=== PATIENT | female | born 2000 | race African-American/Black ===

== ENCOUNTER 2024-08-02 21:59 | Inpatient (IN) | payer MEDICAID, OTHER ==
[~2024-08-02] VITALS: Ht 157.5 cm; Wt 89.6 kg
[~2024-08-02 21:59] MED LIST: CEPH-37 PO; IBUP-1456 PO
[2024-08-02 23:10] LABS: Urine Bacteria None Seen /hpf (None Seen)
--- NOTE | 2024-08-02 23:36 | ED.PDOC ---
History of Present Illness HPI Comments 23 y/o F presents with c/o non-radiating, suprapubic abdominal pain and abnormal vaginal bleeding, today. Patient endorses on persisting symptoms, that she thought was her period, initially, for the past 3x weeks. She comments on being seen and sent from an urgent care facility for symptoms and learning via urine test on being , currently. Patient reports bleeding being mildly heavy and going through 2-3x pads/day in addition to describing pain as cramping in quality. She reports no further relevant information, such as any recent injuries, sexual activities, or significant EARLY CHILDHOOD SERVICES COORDINATOR medical history. Patient denies any nausea, vomiting, urinary symptoms, lightheadedness, weakness, or other associated symptoms or modifiers, currently. Chief Complaint: Vaginal Bleed Time Seen by MD: 23:00 Primary Care Provider: DEBI Lagunas Notes: Nurses Notes, Medications, Allergies Allergies: Coded Allergies: NO KNOWN ALLERGIES (Unverified , 02/08/13) Home Meds Active Scripts Ibuprofen (Ibuprofen) 800 Mg Tab, 800 MG PO Q6HP PRN, #20 MG Prov:MARGARITO MUNIZ PAC 05/17/13 Cephalexin (Keflex) 500 Mg Cap, 500 MG PO BID, #14 MG Prov:MARGARITO MUNIZ PAC 05/17/13 Information Source: Patient Mode of Arrival: Ambulatory Severity: Moderate Timing: Hours, Weeks Duration: Since onset Prehospital treatment: None Past Medical History PAST MEDICAL HISTORY: Asthma Past Medical History (Other): obesity Surgical History: Denies all surgeries 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 SALESPERSON RETAIL Hx Family History Family History: Unknown Social History Smoker: Non-Smoker Alcohol: Denies ETOH Use Drugs: Denies Drug Use Lives In: Home Gastrointestinal: reports: abdominal pain Genitourinary: reports: abnormal vagina bleeding All Other Systems: Reviewed and Negative (negative unless otherwise stated above or in HPI) Physical Exam General Appearance: No Apparent Distress, Obese HEENT: Normal ENT Inspection, Pharynx Normal, TMs Normal Neck: Full Range of Motion, Non-Tender, Normal, Normal Inspection Respiratory: Chest Non-Tender, Lungs Clear, No Accessory Muscle Use, No Respiratory Distress, Normal Breath Sounds Cardiovascular: No Edema, No JVD, No Murmur, No Gallop, Normal Peripheral Pulses, Regular Rate/Rhythm Breast Exam: Deferred Gastrointestinal: No Organomegaly, Non Tender, No Pulsatile Mass, Normal Bowel Sounds, Soft Genitalia: Deferred Pelvic: Deferred Rectal: Deferred Extremities: No calf tenderness, Normal capillary refill, Normal inspection, Normal range of motion, Non-tender, No pedal edema Musculoskeletal : Apperance: Normal Neurologic: Alert, shafting cleaner II-XII nml as Tested, No Motor Deficits, Normal Affect, Normal Mood, No Sensory Deficits Cerebellar Function: Normal Reflexes: Normal Skin: Dry, Normal Color, Warm Lymphatic: No Adenopathy Was a procedure done? Was a procedure done?: No Differential Dx Considerations may include: menorrhagia, dysmenorrhea, at-risk , UTI X-Ray, Labs, Meds, VS Vital Signs Date Time Temp Pulse Resp B/P (MAP) Pulse Ox O2 Delivery O2 Flow Rate FiO2 08/03/24 01:29 98.9 79 19 116/84 (95) 99 98.9 08/02/24 22:16 97.8 71 18 128/62 (84) 98 Lab Test 08/02/24 23:38 08/02/24 22:14 Range/Units White Blood Count 14.1 H 4.4-10.8 10^3/uL Red Blood Count 4.43 4.0-5.20 10^6/uL Hemoglobin 12.5 12.2-16.2 g/dL Hematocrit 37.8 36.0-46.0 % Mean Corpuscular Volume 85.3 80.0-100.0 fL Mean Corpuscular Hemoglobin 28.2 28.0-32.0 pg Mean Corpuscular Hemoglobin Concent 33.1 32.0-36.0 g/dL Red Cell Distribution Width 14.5 H 11.8-14.3 % Platelet Count 353 140-450 10^3/uL Mean Platelet Volume 7.5 6.9-10.8 fL Neutrophils (%) (Auto) 63.7 37.0-80.0 % Lymphocytes (%) (Auto) 28.0 10.0-50.0 % Monocytes (%) (Auto) 6.7 0.0-12.0 % Eosinophils (%) (Auto) 0.7 0.0-7.0 % Basophils (%) (Auto) 0.9 0.0-2.0 % Neutrophils # (Auto) 9.0 H 1.6-8.6 10 ^3/uL Lymphocytes # (Auto) 4.0 0.4-5.4 10 ^3/uL Monocytes # (Auto) 0.9 0-1.3 10 ^3/uL Eosinophils # (Auto) 0.1 0-0.8 10 ^3/uL Basophils # (Auto) 0.1 0-0.2 10 ^3/uL Nucleated Red Blood Cells 0.0 % Sodium Level 138 136-145 mmol/L Potassium Level 3.9 3.5-5.1 mmol/L Chloride Level 103 98-107 mmol/L Carbon Dioxide Level 26 20-31 mmol/L Anion Gap 9 5-15 Blood Urea Nitrogen 9 9-23 mg/dL Creatinine 0.63 0.550-1.02 mg/dL Glomerular Filtration Rate Calc 126 >90 mL/min BUN/Creatinine Ratio 14.3 10.0-20.0 Serum Glucose 97 74-106 mg/dL Calcium Level 10.1 8.7-10.4 mg/dL Total Bilirubin 0.4 0.2-1.0 mg/dL Aspartate Amino Transferase (AST) 13 13-40 U/L Alanine Aminotransferase (ALT) 20 7-40 U/L Alkaline Phosphatase 66 46-116 U/L Total Protein 7.5 5.7-8.2 g/dL Albumin 4.8 3.2-4.8 g/dL Beta HCG, Quantitative 78556.4 H 1.5-4.2 mIU/mL Urine Color Light-yellow Yellow Urine Clarity Clear Clear Urine pH 6.0 5.0-9.0 Urine Specific [place] 1.018 1.001-1.035 Urine Protein Negative Negative Urine Ketones Negative Negative Urine Blood 3+ H Negative /uL Urine Nitrite Negative Negative Urine Bilirubin Negative Negative Urine Urobilinogen Normal Negative mg/dL Urine Leukocyte Esterase Negative Negative /uL Urine RBC 185 0 - 4 /hpf Urine Microscopic WBC 2 0-5 /HPF Urine Squamous Epithelial Cells Few <5 /hpf Urine Bacteria None seen None Seen /hpf Urine Glucose Normal Normal mg/dL Time of 1ST Reevaluation: 23:30 Reevaluation 1ST: Unchanged Time of 2ND Reevaluation: 01:39 Reevaluation 2ND: Unchanged Patient Education/Counseling: Diagnosis, Treatment Family Education/Counseling: No Family Present Departure 1 Departure Time of Disposition: 01:39 Impression: Primary Impression: Ectopic Disposition: 09 ADMITTED INPATIENT Admit to: Other Condition: Guarded Discharged With: Self Critical Care Note Critical Care Time?: Yes (35 min-critical care time only) Critical care comment: Total critical care time: Approximately 36 minutes Due to a high probability of clinically significant, life threatening deterioration, the patient required my highest level of preparedness to intervene emergently and I personally spent this critical care time directly and personally managing the patient. This critical care time included obtaining a history; examining the patient; pulse oximetry; ordering and review of studies; arranging urgent treatment with development of a management plan; evaluation of patient's response to treatment; frequent reassessment; and, discussions with other providers. This critical care time was performed to assess and manage the high probability of imminent, life-threatening deterioration that could result in multi-organ failure. It was exclusive of separately billable procedures and treating other patients. Stability Stability form required: No Heart Score Heart Score: Heart Score Response (Comments) Value History N/A 0 EKG N/A 0 Age N/A 0 Risk Factors N/A 0 Troponin N/A 0 Total 0 I personally scribed for FRANNY LUEVANO MD ([email or web address]) on 08/02/24 at 23:36. Electronically submitted by Hemant Morrell ([email or web address]). FRANNY LUEVANO MD Aug 02, 2024 23:36
[2024-08-02 23:46] LABS: Urine Blood 3+ /uL (Negative); Urine Clarity Clear (Clear); Urine Color Light-Yellow (Yellow); Urine Protein, UAD Negative (Negative); Urine Specific Gravity 1.018 (1.001-1.035); Urine Squamous Epithelial Cell FEW /hpf (<5); Urine Urobilinogen Normal (Negative); Urine WBC 2 /HPF (0-5)
[2024-08-02 23:49] LABS: Basophils # (auto) 0.1 10 ^3/uL (0-0.2); Basophils % (auto) 0.9 % (0.0-2.0); Eosinophils # (auto) 0.1 10 ^3/uL (0-0.8); Eosinophils % (auto) 0.7 % (0.0-7.0); Hematocrit 37.8 % (36.0-46.0); Hemoglobin 12.5 g/dL (12.2-16.2); Mean Corpuscular Hemoglobin 28.2 pg (28.0-32.0); Mean Corpuscular Hgb Conc. 33.1 g/dL (32.0-36.0); Mean Corpuscular Volume 85.3 fL (80.0-100.0); Monocytes # (auto) 0.9 10 ^3/uL (0-1.3); Monocytes % (auto) 6.7 % (0.0-12.0); Neutrophils % (auto) 63.7 % (37.0-80.0); Platelet Count (auto) 353 10^3/uL (140-450); Red Blood Cells 4.43 10^6/uL (4.0-5.20); Red Cell Distribution Width 14.5 % (11.8-14.3); White Blood Cell 14.1 10^3/uL (4.4-10.8)
[2024-08-03] VITALS (8 sets, daily range): BP systolic 107–140; BP diastolic 49–97; PULSE 64–87; RESP 16–18; TEMP 97.7–98.4; O2SAT 94–100
[2024-08-03 00:14] LABS: Alanine Aminotransferase 20 U/L (7-40); Alkaline Phosphatase 66 U/L (46-116); Anion Gap 9 (5-15); Aspartate Aminotransferase 13 U/L (13-40); BUN/Creatinine Ratio 14.3 (10.0-20.0); Calcium 10.1 mg/dL (8.7-10.4); Carbon Dioxide 26 mmol/L (20-31); Chloride 103 mmol/L (98-107); Glucose 97 mg/dL (74-106); Potassium 3.9 mmol/L (3.5-5.1); Sodium 138 mmol/L (136-145)
[2024-08-03 00:15] LABS: Bilirubin, Total 0.4 mg/dL (0.2-1.0); Total Protein 7.5 g/dL (5.7-8.2)
[2024-08-03 00:16] LABS: Albumin 4.8 g/dL (3.2-4.8); Blood Urea Nitrogen 9 mg/dL (9-23)
--- NOTE | 2024-08-03 01:32 | DVH ---
OB ULTRASOUND <14 WEEKS: HISTORY: vag bleeding, early TECHNIQUE: Multiple real-time grayscale sonographic images of the pelvis with duplex Doppler color f low, spectral and M-mode analysis. TRANSDUCERS: COMPARISON: None FINDINGS: The uterus measures approximately 10.2 x 5.2 x 5.1 cm. No intrauterine is identified. Endom etrium measures 12-13 mm in thickness. Right ovary measures approximately 3.5 x 1.8 x 2.8 cm with normal Doppler color flow. Left ovary measures approximately 3.2 x 2.4 x 3.1 cm with normal Doppler color flow. There is evidence of a complex mixed echogenicity lesion with vascularity in the left adenexal region measuring up to 3.3 cm which may represent ectopic . Small amount of nonspecific free fluid noted in the cul-de-sac. IMPRESSION: No evidence of intrauterine . Complex mixed echogenicity lesion in left adnexal region which may represent ectopic .
[2024-08-03 02:11] LABS: INR 0.97 (0.9-1.15); Partial Thromboplastin Time 29.3 SEC (24.5-34.5); Prothrombin Time 10.3 sec (9.3-11.8)
[2024-08-03] MEDS ORDERED: IBUP-1456 PO (07:10)
[2024-08-03] MEDS ORDERED: DOCU-94 PO (07:10)
[2024-08-03] MEDS ORDERED: HYDR-4072 PO (07:10)
[2024-08-03] MEDS ORDERED: ZOFR4T PO (07:10)
--- NOTE | 2024-08-03 07:12 | DVHHP ---
ADMIT DATE: 08/02/2024 CHIEF COMPLAINT: Abdominal pain, vaginal bleeding. HISTORY OF PRESENT ILLNESS: The patient is a 23-year-old 2, para 1 with last menstrual period beginning of June, admitted for ectopic . The patient's beta hCG is 14,000, no intrauterine noted. Left adnexal complex mass noted. The patient has been having spotting and pain for the last 3 weeks, which became worse. Her ultrasound reveals a 10 cm uterus with 3.5 cm complex mass on the left side. PAST MEDICAL HISTORY: None. PAST SURGICAL HISTORY: None. SOCIAL HISTORY: The patient admits to smoking. FAMILY HISTORY: None. ALLERGIES: No known drug allergies. REVIEW OF SYSTEMS: Consistent with HPI. PHYSICAL EXAMINATION: VITAL SIGNS: Stable, afebrile. HEENT: Within normal limits. CARDIOVASCULAR: Regular rate and rhythm. LUNGS: Clear to auscultation. BREASTS: Symmetrical. No masses. ABDOMEN: Soft, no rigidity, no rebound. PELVIC: External genitalia within normal limits. Vagina normal. Cervix grossly normal. Uterus 10-week size. Adnexal tenderness on the left side. EXTREMITIES: No clubbing, cyanosis or edema. IMPRESSION: Suspect left adnexal ectopic . PLAN: Laparoscopy, possible exploratory laparotomy, possible removal of affected tube or ovary or both on the affected side, possible blood transfusion, possible exploratory laparotomy. Informed consent obtained. Risks, complication of surgery including infection, bleeding, hematoma formation, injury to bowel, bladder, surrounding organs, possibility of DVT, pulmonary embolism, risk of anesthesia discussed with the patient. Options reviewed. All questions answered. The patient fully understands. She wishes to proceed with planned procedure. DO SONAM Shah TID: [id number] RECEIPT: [id number]
[2024-08-03] MEDS ORDERED: ACETAMINOPHEN 500 MG TAB or CAP PO PRN (07:15)
[2024-08-03] MEDS ORDERED: RHO (D) IMMUNE GLOBULIN 300 MCG INJ IM PRN (07:15)
[2024-08-03] MEDS ORDERED: MEPERIDINE HCL (25 MG/ML) 1ML VIAL ONE (07:20)
[2024-08-03] MEDS ORDERED: fentaNYL CITRATE 100 MCG/2 ML VL ONE (07:20)
[2024-08-03] MEDS ORDERED: MIDAZOLAM HCL 2MG/2ML 2ml VIAL (1mg/ml) ONE (07:20)
[2024-08-03] MEDS: SUCCINYLCHOLINE CHLORIDE 20 MG/ML 10ML VIAL IV ONE (07:26)
[2024-08-03] MEDS ORDERED: PROPOFOL 10 MG/ML 20 ML IV ONE (07:42)
[2024-08-03] MEDS ORDERED: DexAMETHasone SOD PHOS 10MG/1ML VIAL INJ ONE (07:42)
[2024-08-03] MEDS ORDERED: ONDANSETRON HCL 4 MG/2 ML VIAL ONE (07:42)
[2024-08-03] MEDS ORDERED: ROCURONIUM 10MG/ML 10ML VIAL IV ONE (07:57)
[2024-08-03] MEDS: ceFAZolin 2 GM/D5W100ml 100 ML IV ONE (08:20)
[2024-08-03] MEDS: LIDOCAINE W/ EPINEPHRINE 1% 20ML VIAL ONE (08:25)
[2024-08-03] MEDS: BUPIVACAINE HCL 0.25% P/F 10 ML VIAL ONE ×2 (08:26)
[2024-08-03] MEDS ORDERED: MORPHINE SULFATE INJ 2 MG/ml SYRG IV PRN (08:30)
[2024-08-03] MEDS ORDERED: NITROGLYCERIN 0.4 MG SL TAB SL PRN (08:30)
[2024-08-03] MEDS ORDERED: SUGAMMADEX 200mg/2ml Vial (100MG/ML) IV ONE (08:31)
[2024-08-03] MEDS: HYDROmorphone HCL 2 MG/ML VL/or syr ONE (09:01)
[2024-08-03] MEDS: HYDROmorphone HCL 2 MG/ML VL/or syr IV PRN (09:02)
[2024-08-03] MEDS: KETOROLAC TROMETH 30 MG/ML 1ML VIAL IV ONE (09:15)
[2024-08-03] MEDS ORDERED: ePHEDrine SULFATE 50 MG/ML AMP IV PRN (09:15)
[2024-08-03] MEDS: ONDANSETRON HCL 4 MG/2 ML VIAL IV ONE (09:15)
[2024-08-03] MEDS ORDERED: MIDAZOLAM HCL 2MG/2ML 2ml VIAL (1mg/ml) IV PRN (09:15)
[2024-08-03] MEDS ORDERED: hydrALAZINE HCL 20 MG/ML VL IV PRN (09:15)
[2024-08-03] MEDS ORDERED: MORPHINE SULFATE 4 MG/ML SYR/VIAL IV PRN (09:15)
[2024-08-03] MEDS: ACETAMINOPHEN IV 1000 MG/100ML (10MG/ML) IV ONE (09:30)
[2024-08-03 11:48] LABS: Basophils # (auto) 0 10 ^3/uL (0-0.2); Basophils % (auto) 0.1 % (0.0-2.0); Eosinophils # (auto) 0 10 ^3/uL (0-0.8); Hemoglobin 12.9 g/dL (12.2-16.2); Lymphocytes # (auto) 1.2 10 ^3/uL (0.4-5.4); Lymphocytes % (auto) 8.4 % (10.0-50.0); Mean Corpuscular Hemoglobin 27.8 pg (28.0-32.0); Mean Corpuscular Volume 84.3 fL (80.0-100.0); Monocytes # (auto) 0.2 10 ^3/uL (0-1.3); Monocytes % (auto) 1.1 % (0.0-12.0); Neutrophils # (auto) 13.3 10 ^3/uL (1.6-8.6); Neutrophils % (auto) 90.4 % (37.0-80.0); Nucleated Red Blood Cells % 0.1 %; Platelet Count (auto) 373 10^3/uL (140-450); Red Blood Cells 4.63 10^6/uL (4.0-5.20); Red Cell Distribution Width 14.5 % (11.8-14.3); White Blood Cell 14.7 10^3/uL (4.4-10.8)
--- NOTE | 2024-08-03 12:51 | DVHOP2 ---
Operative Report DATE OF OPERATION: 08/03/24 PREOPERATIVE DIAGNOSES: lefttubal ectopic . POSTOPERATIVE DIAGNOSES: left tubal ectopic pregnancyleaking.pid SURGEON: Cornelia Mcclelland D.O./fay ANESTHESIOLOGIST: song TYPE OF ANESTHESIA : General CONSENT: The patient was informed of the risks and benefits of the procedure. The patient was informed of the risks and benefits of the procedure. These include but are not limited to , complications of anesthesia, postoperative infection, incomplete relief of symptoms, recurrence of symptoms, damage to blood vessels, nerves and tendons, deep venous thrombosis, pulmonary embolism and possible need for repeat surgery in the future. FINDINGS:left tubal . Uterus is 8-week sized. right tube and ovary are normal appearing but with adhesions findings c/w pid filmy adhesions . left ovary is normal appearing. PROCEDURES: Laparoscopic left Salpingectomy. PROCEDURE IN DETAIL: The patient was taken to the operating room where she was placed under general anesthesia. She was then prepped and draped in the usual sterile manner in dorsal lithotomy position. Bladder was emptied using Morales catheter. Examination under anesthesia revealed the above findings. A weighted speculum was placed in the vagina. Anterior lip of the cervix was grasped using single-tooth tenaculum. Uterus was sounded to 8 cm. HUMI catheter was placed. Attention was then turned to the abdomen where Veress needle was introduced. Abdomen was distended with 3L of CO2 gas. Using Visiport, under direct visualization, abdomen was entered through the umbilical fold. A 5-mm trocar was placed in the suprapubic region. A 12-mm trocar was placed on the left lateral aspect of the abdomen 4 cm away from the midline. Survey of pelvis and abdomen revealed left tubal .there was evidence of pid . righttube and ovary were grossly normal appearing. A WAYNE stapler was then introduced to excise the ectopic . This was done successfully. Hemoclips were applied. Pelvis was copiously irrigated with normal saline. Using endobag, the specimen was brought out through the 12-mm port. No bleeding was noted. Incisional ports were closed using 4-0 Vicryl as well as 0 Vicryl for the bigger port enclosing the fascia. The patient tolerated the procedure well. The 12-mm trocar site was closed using staplers. HUMI catheter was removed from the vagina and cervix. The patient was taken to the recovery room in a stable condition. ESTIMATED BLOOD LOSS: Estimated blood loss was noted to be 20 mL. Visit Coding OBGYN Date of Service: Aug 03, 2024 Billing Provider: CORNELIA MCCLELLAND DO DATABASE PROGRAMMER Common Visit Codes: 58180-FOM/OBS SAME DATE (HIGH) DATABASE PROGRAMMER Consultation Codes: 88507-LJAGTSUOD CONSULT <80MIN DATABASE PROGRAMMER Procedure Codes: 80271-INP.SURG:W/REM ADNEXAL STRUCT, 30073-BDQS TX OF ECTOPIC PREG CORNELIA MCCLELLAND DO Aug 03, 2024 12:51
[2024-08-03] MEDS: MORPHINE SULFATE 4 MG/ML SYR/VIAL IV PRN (12:52)
--- NOTE | 2024-08-03 12:53 | POSTOP ---
Post-Operative Note Post-Operative Note Preop Diagnosis left tubal ectopic preg Postop Diagnosis: same,pid Operation performed laparoscopic left salpingectomy Specimen left tube Anesthesia: General Anesthesiologist: song Blood Loss(fluid mgmt) 20ml Surgeon Cornelia Art Senior Hr Business Partner fay Implant clips and halima Complications & Mgmt none Date 08/03/24 Time 12:51 Visit Coding OBGYN Date of Service: Aug 03, 2024 Billing Provider: CORNELIA ART DO LAP POLISHER Common Visit Codes: 99703-YCB/OBS SAME DATE (HIGH) LAP POLISHER Procedure Codes: 45499-ZC ECTOP PREG TUBAL/OVARIAN, 16673-NFTY TX OF ECTOPIC PREG CORNELIA ART DO Aug 03, 2024 12:53
[2024-08-03] MEDS: LACTATED RINGER'S 1,000 ML IV SCH ×2 (13:55→20:45)
[2024-08-03] MEDS: HYDROcodone-ACET 10/325MG TAB PO PRN (16:36)
[2024-08-03] MEDS: ONDANSETRON HCL 4 MG/2 ML VIAL IV PRN (19:51)
[2024-08-03] MEDS: ceFAZolin 1GM/50ML 50 ML IV SCH (22:53)
[2024-08-03] MEDS: DOCUSATE SOD 100 MG CAP PO SCH (22:53)
[2024-08-04 01:00] VITALS: BP 105/51; PULSE 59; RESP 17; TEMP 97.9; O2SAT 100
[2024-08-04 05:00] VITALS: BP 107/44; PULSE 67; RESP 18; TEMP 97.7; O2SAT 100
[2024-08-04 06:57] LABS: Basophils # (auto) 0 10 ^3/uL (0-0.2); Basophils % (auto) 0.1 % (0.0-2.0); Eosinophils # (auto) 0 10 ^3/uL (0-0.8); Eosinophils % (auto) 0.1 % (0.0-7.0); Hematocrit 40.1 % (36.0-46.0); Hemoglobin 12.9 g/dL (12.2-16.2); Lymphocytes # (auto) 2.8 10 ^3/uL (0.4-5.4); Lymphocytes % (auto) 14.2 % (10.0-50.0); Mean Corpuscular Hemoglobin 27.6 pg (28.0-32.0); Mean Corpuscular Hgb Conc. 32.2 g/dL (32.0-36.0); Mean Corpuscular Volume 85.8 fL (80.0-100.0); Monocytes # (auto) 1.6 10 ^3/uL (0-1.3); Monocytes % (auto) 8.1 % (0.0-12.0); Neutrophils # (auto) 15.3 10 ^3/uL (1.6-8.6); Neutrophils % (auto) 77.5 % (37.0-80.0); Nucleated Red Blood Cells % 0.1 %; Platelet Count (auto) 400 10^3/uL (140-450); Red Blood Cells 4.67 10^6/uL (4.0-5.20); Red Cell Distribution Width 14.6 % (11.8-14.3); White Blood Cell 19.8 10^3/uL (4.4-10.8)
--- NOTE | 2024-08-04 06:59 | DVHPN2 ---
Chief Complaints Patient reports: No new complaints, Feels better Nursing reports: No new complaints Objective Vitals Vital Signs Date Time Temp Pulse Resp B/P (MAP) Pulse Ox O2 Delivery O2 Flow Rate FiO2 08/04/24 05:00 97.7 67 18 107/44 (65) 100 97.7 08/03/24 20:15 Room Air* 0 21 Medications Current Medications Medications (Trade) Dose Ordered Sig/Myles Route PRN Reason Start Time Stop Time Status Last Admin Acetaminophen (Tylenol Tablet Or Capsule) 500 mg Q6HP PRN PO TEMP GREATER THAN 100.4 08/03/24 07:15 Acetaminophen/ Hydrocodone Bitart ([place]ston 10/325MG Tab) 1 tab Q4HP PRN PO MODERATE PAIN (4-6 PAIN SCALE) 08/03/24 14:15 08/04/24 06:07 Cefazolin Sodium 50 ml @ 100 mls/hr Q8HR IV 08/03/24 22:00 08/04/24 06:02 Docusate Sodium (Colace Capsule) 100 mg BID PO 08/03/24 22:00 08/03/24 22:53 Lactated Ringer's 1,000 ml @ 80 mls/hr [id number] IV 08/03/24 20:45 Morphine Sulfate 2 mg Q30M PRN IV FOR CHEST PAIN 08/03/24 08:30 Morphine Sulfate 2 mg Q4HP PRN IV SEVERE PAIN (7-10 PAIN SCALE) 08/03/24 07:15 08/04/24 00:27 Nitroglycerin (Ntrostat Sublingual) 0.4 mg Q5MINP PRN SL FOR CHEST PAIN 08/03/24 08:30 Ondansetron HCl (Zofran) 4 mg Q4HP PRN IV NAUSEA / VOMITING 08/03/24 07:15 08/03/24 19:51 Rho Immune Globulin (Rhogam) 300 mcg ONCE PRN IM If Rh negative 08/03/24 07:15 General: Normal Lungs: Normal Cardiovascular: Normal Abdominal: Soft Musculoskeletal: Normal Extremities: Normal Studies Laboratory Tests 08/02/24 23:38 Test 08/02/24 23:38 Range/Units Serum Glucose 97 74-106 mg/dL Ass/Plan Assessment S/P LAPAROSCOPIC LEFT SALPINGECTOMY Plan DC HOME FU IN 1WK THURSDAY 9AM Visit Coding OBGYN Date of Service: Aug 04, 2024 Billing Provider: KANDICE MCCLELLAND DO MANAGER OF DIGITAL Common Visit Codes: 36023-QSQ/OBS SAME DATE (HIGH) MANAGER OF DIGITAL Procedure Codes: 58333-XW ECTOP PREG TUBAL/OVARIAN, 43149-PGJU TX OF ECTOPIC PREG KANDICE MCCLELLAND DO Aug 04, 2024 06:59
[2024-08-04 09:00] VITALS: BP 114/53; PULSE 60; RESP 16; TEMP 98.4; O2SAT 99
--- NOTE | 2024-08-04 12:40 | DVHDS2 ---
Physician Discharge Progress N Final Diagnosis: ECTOPIC PREG ,pid,MORBID OBESITY Operations or Procedures: Operations or Procedures laparoscopic left salpingectomy Condition on Discharge: Good Disposition: Home Discharge Instructions: Diet: Regular Activity: Light activity Follow Up/Referral: 1W Medications: ANGELITO VELAZQUEZ Follow Up Care: Specialist: 1w Discharge Statement: "Patient was advised to return to the ER or call 911 if any headaches, dizziness, shortness of breath, chest pain, abdominal pain, bleeding, fevers, or worsening of medical condition. Patient was counseled about treatment plan, medications, possible side effects, patientverbalized understanding. All questions were answered to the best of my ability. This discharge took greater then 30 minutes in planning, reviewing documentation, counseling the patient, and discussing with other team members." Visit Coding OBGYN Date of Service: Aug 04, 2024 Billing Provider: KANDICE MCCLELLAND DO PIPE BOWL PAINT TRIMMER Common Visit Codes: 43545-DLK/OBS SAME DATE (HIGH) PIPE BOWL PAINT TRIMMER Procedure Codes: 53228-RPG.SURG:W/REM ADNEXAL STRUCT, 43555-SB ECTOP PREG TUBAL/OVARIAN, 31515-VYWO TX OF ECTOPIC PREG KANDICE MCCLELLAND DO Aug 04, 2024 12:40
== END 2024-08-04 11:15 | disposition home or self-care (01) | DRG 819 ==
LOC: ER 21:59 → OVERFLOW 08-03 08:27 → WEST WING 08-03 10:12
PROVIDERS: ADMIT Obstetrics & Gynecology; ATTEND Obstetrics & Gynecology
PROC: 10T24ZZ Resection of Products of Conception, Ectopic, Percutaneous Endoscopic Approach (ICD-10-PCS; principal; 2024-08-03 07:22)
DX: O00.102 Left tubal pregnancy without intrauterine pregnancy (principal); E66.01 Morbid (severe) obesity due to excess calories; J45.909 Unspecified asthma, uncomplicated; F17.200 Nicotine dependence, unspecified, uncomplicated; Z79.899 Other long term (current) drug therapy; Z68.33 Body mass index [BMI] 33.0-33.9, adult
CPT/HCPCS: 36415; 76801; 76817; 80053; 81001; 84702; 85025; 85610; 85730; 86850; 86900; 86901; 96365; 99291; G0378; J0330; J1100; J2250; J2405; J2704; J3490